=== PATIENT | male | born 1950 | race Caucasian/White ===

== ENCOUNTER 2024-05-19 02:42 | Inpatient (IN) | payer MEDICARE, SELFPAY ==
[2024-05-19] VITALS (16 sets, daily range): BP systolic 128–250; BP diastolic 47–118; PULSE 75–89; RESP 10–21; TEMP 36.3–37.6; O2SAT 94–100
--- NOTE | 2024-05-19 03:30 | ED.MALEGU ---
HPI - Male Genitourinary General Chief complaint: Urogenital-Male Stated complaint: urinary sx, hematuria Time Seen by Provider: 05/19/24 03:08 History of Present Illness HPI Narrative: This is a 74-year-old male with a past medical history significant for prostate surgeries including TURP who presents to the emergency department today for urinary retention and previous passage of big blood clots. Patient states that for last several days he has been having some dime-sized blood clot passage associated some mild abdominal discomfort. This has happened to him previously requiring catheterization. This was attributed to prostatic issues and he previously had urologist up in [place] and underwent several procedures. He states that almost 24 hours now he has not been able to urinate and feels like there is no obstruction. He is having abdominal discomfort and distention. No associated nausea, vomiting, fever, chills, back pain, chest pain, shortness a breath. Was otherwise in his normal state of health. Did not take his blood pressure medications this morning. Related Data Home Medications Medication Instructions Recorded Confirmed aspirin 81 mg tablet,delayed 81 mg PO DAILY 05/19/24 05/19/24 release carvedilol 12.5 mg tablet 12.5 mg PO TID 05/19/24 05/19/24 dapagliflozin propanediol 10 mg 10 mg PO DAILY 05/19/24 05/19/24 tablet (Farxiga) furosemide 20 mg tablet 20 mg PO DAILY 05/19/24 05/19/24 hydralazine 25 mg tablet 25 mg PO TID 05/19/24 05/19/24 potassium chloride 10 mEq 10 meq PO DAILY 05/19/24 05/19/24 tablet,extended release sacubitril 49 mg-valsartan 51 mg 49 tablet PO BID 05/19/24 05/19/24 tablet (Entresto) Allergies Allergy/AdvReac Type Severity Reaction Status Date / Time lisinopril Allergy Cough Verified 05/19/24 02:43 Review of Systems Review of Systems: As reviewed above in HPI FOR[facility]LY [facility], [facility] Past Medical History Medical History Cardiomyopathy HTN (hypertension) with goal to be determined Hyperlipidemia Mitral regurgitation Stopped smoking with less than 1 pack per day history Exam Narrative: GENERAL: [Well-appearing, well-nourished, and in no acute distress.] HEAD: [Normocephalic, atraumatic.] EYES: [PERRLA and EOMI.] ENT: Nares clear, no rhinorrhea or epistaxis. Mucous membranes moist. NECK: Supple. CHEST: [Clear to auscultation. No respiratory distress.] HEART: [Regular rate and rhythm]. No murmur heard. [Normal peripheral pulses.] ABDOMEN: Distended abdomen, soft, tenderness in the suprapubic region, [No rigidity or guarding] no CVA tenderness EXTREMITIES: Normal range of motion. [No edema.] SKIN: Warm, dry, no rash. NEURO: [No focal deficits]. Alert and oriented [x3.] PSYCH: [Normal mood and affect.] Course Vital Signs Vital signs: Vital Signs Temperature 36.7 C 05/19/24 02:44 Pulse Rate 89 05/19/24 02:44 Respiratory Rate 17 05/19/24 02:44 Blood Pressure 250/118 H 05/19/24 02:44 Pulse Oximetry 98 05/19/24 02:44 Oxygen Delivery Room Air 05/19/24 02:44 Temperature 36.7 C 05/19/24 02:44 Pulse Rate 83 05/19/24 05:37 Respiratory Rate 14 05/19/24 05:37 Blood Pressure 227/114 H 05/19/24 05:37 Pulse Oximetry 96 05/19/24 05:37 Oxygen Delivery Room Air 05/19/24 02:44 MDM - Male Genitourinary MDM Narrative Medical decision making narrative: 74-year-old male presenting for urinary obstruction and retention. He also had 2 days of hematuria. Previous prostate issues and history of a TURP for similar presentation years ago. He is nontoxic appearing, not in any acute distress but is painful with a distended abdomen and tender suprapubic region. No CVA tenderness. Vital signs show hypertension a blood pressure of 237/119. Patient has a history of chronic hypertension. Did not take his blood pressure medications this evening. Asymptomatic from this at this time does not require emergent lowering of his blood pressure, there i
[2024-05-19] MEDS: MORPHINE SULFATE (*CRX) 4 MG/ML INJ IV PUSH (03:40)
[2024-05-19] MEDS: HYDROmorphone HCL INJ (*CRX) 1 MG/ML SYR 0.5 MG IV PUSH (04:09)
[2024-05-19] MEDS: ONDANSETRON INJ 4 MG/2 ML VIAL IV PUSH ×2 (04:10→10:57)
[2024-05-19] MEDS: LACTATED RINGERS 1,000 ML 999 ML IV CONT (04:10)
[2024-05-19 04:42] LABS: Basophils Percent Auto 0.3 % (0.2-1.2); Eosinophils Absolute Auto 0.1 K/mm3 (0-0.3); Eosinophils Percent Auto 0.5 % (0-4.4); Hematocrit 45.6 % (42.0-52.0); Hemoglobin 15.4 g/dL (14.0-18.0); Immature Granulocyte Absolute 0.05 K/mm3 (0.00-0.031); Immature Granulocyte Percent A 0.3 % (0-0.5); Lymphocytes Absolute Auto 1.03 K/mm3 (0.9-3.2); Lymphocytes Percent Auto 6.7 % (18.3-44.2); Mean Corpuscular HGB Conc 33.8 g/dl (32-36); Mean Corpuscular Hemoglobin 30.4 pg (26-34); Mean Corpuscular Volume 89.9 fl (80-100); Mean Platelet Volume 11.1 fl (7.4-10.4); Monocytes Absolute Auto 0.8 K/mm3 (0.1-0.6); Monocytes Percent Auto 5.1 % (2.6-8.5); Neutrophils Absolute Auto 13.3 K/mm3 (1.3-6.7); Neutrophils Percent Auto 87.1 % (45.5-73.1); Platelet Count Result 164 k/mm3 (150-375); Red Blood Count 5.07 M/mm3 (4.6-6.20); Red Cell Distribution Width 13.3 % (11.5-14.5); White Blood Count 15.3 K/mm3 (4.5-10.0)
[2024-05-19 04:55] LABS: Prothrombin Time 14.2 Seconds (11.1-14.7)
[2024-05-19 04:56] LABS: Partial Thromboplastin Time 29.2 Seconds (22.3-36.8)
[2024-05-19 04:57] LABS: Anion Gap 14 mmol/L (4-12); Blood Urea Nitrogen 23 mg/dL (9-20); Calcium 8.6 mg/dL (8.4-10.2); Carbon Dioxide 27 mmol/L (22-30); Chloride 101 mmol/L (98-107); Estimated CRCL calculation 64 ml/min; Estimated Glomerular Filt Rate > 60; Glucose 149 mg/dL (65-110); Potassium 2.8 mmol/L (3.4-5.0); Sodium 142 mmol/L (137-145)
--- NOTE | 2024-05-19 05:02 | P.PNAN_ITS ---
Anes - Eval Pre Procedure Procedure: Cysto with clot evac Date/Time: 05/19/24 05:02 Surgeon: Blaine Pre Op Diagnosis: urinary sx, hematuria Patient Data Age: 74 Gender: M Height: 1.83 m Weight: 84.9 kg Last Vital Signs Temp 98.1 F 05/19/24 02:44 Pulse 89 05/19/24 02:44 Resp 17 05/19/24 02:44 BP 250/118 H 05/19/24 02:44 Pulse Ox 98 05/19/24 02:44 O2 Del Method Room Air 05/19/24 02:44 Allergies Allergy/AdvReac Type Severity Reaction Status Date / Time lisinopril Allergy Cough Verified 05/19/24 02:43 Laboratory Tests 05/19/24 04:33 WBC 15.3 H K/mm3 (4.5-10.0) RBC 5.07 M/mm3 (4.6-6.20) Hgb 15.4 g/dL (14.0-18.0) Hct 45.6 % (42.0-52.0) MCV 89.9 fl (80-100) MCH 30.4 pg (26-34) MCHC 33.8 g/dl (32-36) RDW 13.3 % (11.5-14.5) Plt Count 164 k/mm3 (150-375) MPV 11.1 H fl (7.4-10.4) Immature Gran % (Auto) 0.3 % (0-0.5) Neut % (Auto) 87.1 H % (45.5-73.1) Lymph % (Auto) 6.7 L % (18.3-44.2) [place] % (Auto) 5.1 % (2.6-8.5) Eos % (Auto) 0.5 % (0-4.4) Baso % (Auto) 0.3 % (0.2-1.2) Lymph # (Auto) 1.03 K/mm3 (0.9-3.2) [place] # (Auto) 0.8 H K/mm3 (0.1-0.6) Eos # (Auto) 0.1 K/mm3 (0-0.3) Baso # (Auto) 0.0 K/mm3 (0.0-0.1) Abs Immat Gran (auto) 0.05 H K/mm3 (0.00-0.031) Absolute Neuts (auto) 13.3 H K/mm3 (1.3-6.7) Absolute Nucleated RBC 0.000 K/mm3 (0.0-0.012) Nucleated RBC % 0.0 % (0.0-0.2) PT 14.2 Seconds (11.1-14.7) INR 1.0 APTT 29.2 Seconds (22.3-36.8) Sodium 142 mmol/L (137-145) Potassium 2.8 L* mmol/L (3.4-5.0) Chloride 101 mmol/L (98-107) Carbon Dioxide 27 mmol/L (22-30) Anion Gap 14 H mmol/L (4-12) BUN 23 H mg/dL (9-20) Creatinine 1.00 mg/dL (0.7-1.3) Estim Creat Clear Calc 64 ml/min Estimated GFR > 60 (59 - ) Glucose 149 H mg/dL (65-110) Calcium 8.6 mg/dL (8.4-10.2) Blood Type Pending Antibody Screen Pending Patient hx anesthesia problems: none Family hx anesthesia problems: none Results Review: All pre-operative results and documents have been reviewed as part of the pre- operative evaluation. [facility] Past Medical History Medical History Cardiomyopathy HTN (hypertension) with goal to be determined Hyperlipidemia Mitral regurgitation Stopped smoking with less than 1 pack per day history Exam Day of Procedure 05/19/24 05:02 Patient weight: normal
[2024-05-19] MEDS: carvediloL 6.25 MG TABLET PO (05:06)
[2024-05-19] MEDS: hydrALAZINE HCL 25 MG TABLET PO ×3 (05:06→15:55)
[2024-05-19] MEDS: POTASSIUM CHLORIDE INJ 40 MEQ in SODIUM CHLORIDE 0.9% IV 500 ML 130 MEQ IVPB (05:32)
--- NOTE | 2024-05-19 05:38 | P.HP_ITS ---
H&P: HPI History of Present Illness Date/Time: 05/19/24 05:38 Chief Complaint: Urinary retention with hematuria and clots Narrative: 74-year-old male with history of Rezume and TURP 5 years ago who presented to [facility] emergency room after inability to void since 11:00 a.m. yesterday afternoon. Patient stated that he had clots in addition. Multiple attempts at catheter placement were made by the emergency room unsuccessfully. Patient states that he had nocturia 2-5 times and frequency every hour to 2 hours prior to this event. Patient denies any fevers. Review of Systems Review of Systems: All systems reviewed & are unremarkable except as noted in HPI and below PMFSH Past Medical History Medical History Cardiomyopathy HTN (hypertension) with goal to be determined Hyperlipidemia Mitral regurgitation Stopped smoking with less than 1 pack per day history Meds Home Medications and Allergies Allergies Allergy/AdvReac Type Severity Reaction Status Date / Time lisinopril Allergy Cough Verified 05/19/24 02:43 Vital Signs Vital Signs - 24 hr 05/19/24 02:44 05/19/24 05:06 05/19/24 05:37 Temperature 36.7 C Pulse Rate 89 84 83 Respiratory Rate 17 14 Blood Pressure 250/118 H 227/114 H Pulse Oximetry 98 96 Oxygen Delivery Room Air Exam Const: General: cooperative and uncomfortable Resp: Effort & Inspection: normal respiratory effort Cardio: Rate: regular rate Rhythm: regular rhythm GI: Inspection: distended H&P: Results Labs Labs: Short CBC 05/19/24 Range/Units 04:33 WBC 15.3 H (4.5-10.0) K/mm3 Hgb 15.4 (14.0-18.0) g/dL Hct 45.6 (42.0-52.0) % Plt Count 164 (150-375) k/mm3 [facility] 05/19/24 04:33 Sodium 142 Potassium 2.8 L* Chloride 101 Carbon Dioxide 27 BUN 23 H Creatinine 1.00 Glucose 149 H Calcium 8.6 Assessment and Plan Assessment and plan (1) Urinary retention: Code(s): R33.9 - Retention of urine, unspecified Status: Acute Assessment and Plan: Will need to go to the operating room for cystoscopy with White catheter placement possible clot evacuation (2) Hematuria: Code(s): R31.9 - Hematuria, unspecified Status: Acute Assessment and Plan: See above (3) Blood clots in urine: Code(s): R31.0 - Gross hematuria Status: Acute Assessment and Plan: See above (4) Hypertension: Code(s): I10 - Essential (primary) hypertension Status: Acute Assessment and Plan: Possibly related to his pain. Will have medical management given his history of significant hypertension and cardiomyopathy
--- NOTE | 2024-05-19 05:55 | WPDHPUPDATE1 ---
History and Physical Update Update Date/Time: 05/19/24 05:55 History and Physical has been reviewed, including an updated exam of the patient. There are NO changes in the patient's condition. Risks, benefits, and alternatives have been discussed and questions answered. Patient agrees to proceed with procedure.
[2024-05-19] MEDS: ceFAZolin SODIUM 1 GM VIAL 2 GM IV PUSH (06:06)
[2024-05-19] MEDS: LIDOCAINE HCL 2% GEL UROJET 10 ML PKG MUCOUS MEM (06:08)
--- NOTE | 2024-05-19 06:28 | W.PM.PROC2 ---
Procedure Note - Detailed Date of Procedure 05/19/24 Pre-op Diagnosis urinary sx, hematuria Post-op Diagnosis Same Procedure Performed Cystoscopy, clot evacuation, fulguration, complex White catheter placement 22 [place] Surgeon Abram Valladares MD Anesthesia General Description of Procedure Patient was taken to the operative suite correctly identified. Once anesthesia was obtained was placed in dorsal lithotomy position prepped draped usual sterile fashion. Twenty-two Georgian scope was inserted in direct vision there were no urethral strictures. Visualization was somewhat difficult due to the prior attempts at White catheter placement. Nonetheless were able to place the cystoscope into the bladder. Approximately 75 cc of clot were retrieved. The bladder itself was then inspected. There were no tumors noted. There was moderate trabeculation. There was some distortion of the trigonal area both ureteral orifices were visualized. It was noted that there was oozing and bleeding from the bladder neck area. There was also very vascular residual prostatic tissue which was oozing. Using a rollerball we fulgurated these areas. Due to his prior resume and TURP again the normal anatomy is distorted. There is some residual tissue present. At termination of this procedure there was good hemostasis. I could not place a [address] without the use of a catheter guide. 2% viscous lidocaine had been placed into the urethra. He is taken recovery stable condition. He will be admitted for CBI and medical management of his hypertension. This completes dictation. Please send a copy of op note to my office. Estimated Blood Loss 10 Drains Yes Packing No Pathology None sent Complications No immediate complications Condition Stable Disposition PACU
[2024-05-19] MEDS: LACTATED RINGERS 1,000 ML 30 ML IV CONT (06:34)
--- NOTE | 2024-05-19 09:23 | ADMGEN ---
This patient, Inocencio Still, was admitted to [facility] Surg Room 306-02. Patient/family oriented to hospital policies and general routines including ID bracelet, bed and alarms, visiting hours, pain management, procedures, bathroom and other care routines, personal items, smoking policy, room service/diet, and visiting hours. Information on how to activate the Rapid Response Team has been discussed. Patient/Family are encouraged to report perceived risks to care and to ask questions if they do not understand what they are told or what they should do.
[2024-05-19] MEDS: EMPAGLIFLOZIN 10 MG TABLET BY MOUTH (09:35)
[2024-05-19] MEDS: SACUBITRIL/VALSARTAN 49-51 MG TABLET 1 TABLET PO ×2 (09:35→20:22)
[2024-05-19] MEDS: POTASSIUM CHLORIDE 10 MEQ ER TABLET PO (09:35)
[2024-05-19] MEDS: FUROSEMIDE 20 MG TABLET PO (09:35)
[2024-05-19] MEDS: DOCUSATE SODIUM 100 MG CAPSULE PO (09:35)
[2024-05-19] MEDS: DEXTROSE 5%/LACTATED RINGERS 1,000 ML 125 ML IV CONT ×2 (09:36→16:58)
[2024-05-19] MEDS: HYDROcodone/acetaminophen (*CRX) 5-325 MG TABLET 1 TAB PO ×3 (10:57→20:22)
[2024-05-19] MEDS: HYOSCYAMINE SULFATE 0.125 MG TABLET SUBLINGUAL ×2 (10:57→16:58)
--- NOTE | 2024-05-19 12:45 | WPDCN ---
Assessment and Plan Assessment and plan (1) Urinary retention: Code(s): R33.9 - Retention of urine, unspecified Status: Acute (2) Hematuria: Code(s): R31.9 - Hematuria, unspecified Status: Acute (3) Hypokalemia: Code(s): E87.6 - Hypokalemia Status: Acute (4) Benign prostatic hyperplasia: Code(s): N40.0 - Benign prostatic hyperplasia without lower urinary tract symptoms Status: Acute (5) Hypertension: Code(s): I10 - Essential (primary) hypertension Status: Acute (6) Heart failure with reduced ejection fraction: Code(s): I50.20 - Unspecified systolic (congestive) heart failure Status: Acute (7) Hypertension: Code(s): I10 - Essential (primary) hypertension Status: Acute Plan The patient presented to the emergency department for evaluation hematuria and urinary retention as detailed in HPI. Labs, imaging, EKG, and all reports were personally reviewed. He is now status post cystoscopy with clot evaluation, fulguration, and complex White catheter placement per Dr. Valladares this morning. He has been started on cephalexin. Follow-up urine culture. Potassium was 2.8 and he was given 40 mEq KCL in the ED. Repeat BMP ordered this afternoon. Volume status is euvolemic; avoid over-hydration. Blood pressures were initially running quite high, likely due to pain from urinary retention, but they have improved postop and will be monitored closely. CPAP will be provided for the patient to use while hospitalized. His home medications will be reviewed and resumed as appropriate. Findings and treatment plan were discussed with the patient. Questions were solicited and answered to satisfaction. The patient's medical management will be taken over by the hospitalist team in a.m. Thank you for allowing us to participate in this patient's care. Please do not hesitate to contact us with any questions. HPI Data of Consult Date/Time: 05/19/24 13:00 Requesting Physician: Abram Valladares MD Primary Care Provider: Amelie Paez MD Consult Narrative Reason for consult: Medical management. Narrative: This is a 74-year-old male with benign prostatic hyperplasia, heart failure with reduced ejection fraction (EF as low as 25% with improvement to 55%), obstructive sleep apnea, hypertension, and hyperlipidemia who presented to the emergency department with complaints of difficulties urinating and passing blood clots. The patient provides the following history. He had not been able to void since 11:00 yesterday and sometime last evening he started passing dime-sized blood clots but now urine. His abdomen became increasingly painful and distended and he presented to the emergency department in the rn referral hours. Multiple attempts at urinary catheter placement in the ED were unsuccessful. He was taken to the OR this morning for Dr. Valladares for cystoscopy with clot evacuation, fulguration, and complex White catheter placement. He has been admitted to the floor on CBI and the hospitalist service is consulted for help managing his medical conditions. He was having quite a bit of bladder spasms postoperatively however those have improved significantly with the addition of hyoscyamine. Catheter is draining well and he has no current complaints. He denies fever, chills, sweats, nausea, and vomiting. Review of Systems Review of Systems: 12 systems were reviewed and are negative except for as per HPI. [facility] Past Medical History Medical History Benign prostatic hyperplasia Cardiomyopathy Heart failure with reduced ejection fraction EF 25% in 11/2023 improved to 55% in 01/2024. Hyperlipidemia Hypertension Mitral regurgitation Obstructive sleep apnea on CPAP Stopped smoking with less than 1 pack per day history Surgical History Surgical History History of transurethral resection of prostate Family Histo
[2024-05-19] MEDS: ceFAZolin 1 GM/NS 50 ML 1 GM/50 ML BAG IVPB ×2 (13:20→21:21)
[2024-05-19] MEDS: carvediloL 12.5 MG TABLET PO (15:54)
[2024-05-19 16:19] LABS: Bacteria Urine None Seen /hpf; Non Pathogenic Casts 0-2; RBC Urine >100 /hpf (0-2); Squamous Epithelial Cell Urine None Seen /hpf (Few); WBC Urine 0-5 /hpf (0-3)
[2024-05-19 16:20] LABS: Add Urine Microscopic? YES; Appearance Urine Clear (Clear); Bilirubin Urine Negative (Negative); Blood Urine 3+ (Negative); Glucose Urine UA 1+ mg/dL (Negative); Ketones Urine Negative (Negative); Leukocyte Esterase Ur Trace LEU/UL (Negative); Nitrate Urine Negative (Negative); Protein Urine Negative (Negative); Specific Grav Ur 1.006 (1.001-1.035); Urobilinogen Urine 0.2 mg/dL (<2.0)
[2024-05-19 16:21] LABS: Color Urine Light Red (Yellow)
[2024-05-19 20:23] LABS: Hematocrit 41.1 % (42.0-52.0); Hemoglobin 13.7 g/dL (14.0-18.0)
[2024-05-19 20:34] LABS: Magnesium 2.4 mg/dL (1.6-2.3); Potassium 3.2 mmol/L (3.4-5.0)
[2024-05-19 20:35] LABS: Anion Gap 7 mmol/L (4-12); Blood Urea Nitrogen 20 mg/dL (9-20); Calcium 8.2 mg/dL (8.4-10.2); Carbon Dioxide 34 mmol/L (22-30); Chloride 99 mmol/L (98-107); Estimated CRCL calculation 54 ml/min; Estimated Glomerular Filt Rate 59; Glucose 123 mg/dL (65-110); Potassium 3.2 mmol/L (3.4-5.0); Sodium 140 mmol/L (137-145)
[2024-05-19] MEDS: POTASSIUM CHLORIDE 20 MEQ ER TABLET PO (23:18)
[2024-05-20] VITALS (8 sets, daily range): BP systolic 144–168; BP diastolic 59–79; PULSE 77–94; RESP 16–18; TEMP 36.6–37.6; O2SAT 95–99
[2024-05-20 06:35] LABS: Hematocrit 38.5 % (42.0-52.0); Hemoglobin 12.3 g/dL (14.0-18.0)
[2024-05-20 06:47] LABS: Anion Gap 7 mmol/L (4-12); Blood Urea Nitrogen 18 mg/dL (9-20); Calcium 7.7 mg/dL (8.4-10.2); Carbon Dioxide 30 mmol/L (22-30); Chloride 104 mmol/L (98-107); Estimated CRCL calculation 64 ml/min; Estimated Glomerular Filt Rate > 60; Glucose 96 mg/dL (65-110); Potassium 2.9 mmol/L (3.4-5.0); Sodium 141 mmol/L (137-145)
[2024-05-20] MEDS: carvediloL 12.5 MG TABLET PO ×3 (09:13→16:30)
[2024-05-20] MEDS: HYOSCYAMINE SULFATE 0.125 MG TABLET SUBLINGUAL ×2 (09:13→16:07)
[2024-05-20] MEDS: hydrALAZINE HCL 25 MG TABLET PO ×3 (09:13→16:30)
[2024-05-20] MEDS: SACUBITRIL/VALSARTAN 49-51 MG TABLET 1 TABLET PO ×2 (09:14→20:29)
[2024-05-20] MEDS: DOCUSATE SODIUM 100 MG CAPSULE PO ×2 (09:14→16:07)
[2024-05-20] MEDS: POTASSIUM CHLORIDE 10 MEQ ER TABLET PO (09:14)
[2024-05-20] MEDS: FUROSEMIDE 20 MG TABLET PO (09:14)
[2024-05-20] MEDS: EMPAGLIFLOZIN 10 MG TABLET BY MOUTH (09:15)
[2024-05-20] MEDS: CEPHALEXIN 500 MG CAPSULE PO ×4 (09:15→20:29)
[2024-05-20] MEDS: HYDROcodone/acetaminophen (*CRX) 5-325 MG TABLET 1 TAB PO ×2 (09:31→16:07)
--- NOTE | 2024-05-20 09:50 | WPDUROPN2 ---
Progress Note: A&P Assessment and Plan (1) Urinary retention: Code(s): R33.9 - Retention of urine, unspecified Status: Acute Assessment and Plan: S/p cystoscopy with clot evacuation on 05/19/[address] Valladares (2) Hematuria: Code(s): R31.9 - Hematuria, unspecified Status: Acute Assessment and Plan: With clot retention. Continue CBI, titrate to keep urine clear and continue to wean. Monitor H&H, remaining stable at this time Subjective Subjective Date/Time Seen: 05/20/24 09:50 Interval history: Inocencio is doing well today. Endorses some mild White catheter irritation reports overall for more comfortable today. Notes blood in his urine upon sitting or standing better at rest urine is clear. At this time catheter is draining clear urine on moderate drip CBI. He denies nausea, vomiting, fever, or chills. Review of Systems Review of Systems: All systems reviewed & are unremarkable except as noted in HPI and below Exam Narrative: General: Awake, alert, comfortable, no acute distress HEENT: Normocephalic, atraumatic, sclerae anicteric Respiratory: Normal respiratory effort, no accessory muscle use Abdomen: Nondistended, soft, nontender : Three-way catheter draining clear urine on moderate drip CBI Skin: Normal coloration, warm and dry Neurologic: No focal neuro deficits noted Psychiatric: Appropriate mood and affect, judgment and insight intact Objective Data Vital Signs Vital Signs: Vital Signs - 24 hr 05/19/24 10:08 05/19/24 13:02 05/19/24 17:42 Temperature 98.0 F 99.3 F 99.0 F Pulse Rate 87 81 75 Respiratory Rate 18 18 18 Blood Pressure 160/74 H 135/56 L 128/53 L Pulse Oximetry 95 96 94 Oxygen Delivery 05/19/24 21:33 05/20/24 01:42 05/20/24 05:42 Temperature 99.6 F 99.6 F 99.5 F Pulse Rate 86 84 91 Respiratory Rate 18 16 16 Blood Pressure 132/47 L 153/69 H 168/79 H Pulse Oximetry 96 95 95 Oxygen Delivery 05/19/24 22:40 05/20/24 09:13 05/20/24 09:40 Temperature 98.5 F Pulse Rate 94 82 Respiratory Rate 16 Blood Pressure 165/71 H Pulse Oximetry 96 Oxygen Delivery CPAP Intake/Output Intake/Output: Intake & Output 05/17/24 05/18/24 05/19/24 05/20/24 23:59 23:59 23:59 23:59 Intake Total 2137.5 1318 Output Total 6350 1100 Balance -4212.5 218 Meds/Results Medications: Active Medications Generic Name Dose Route Start Last Admin Trade Name Freq PRN Reason Stop Dose Admin Hydrocodone Bitart/Acetaminophen 1 tab 05/19/24 07:57 05/20/24 09:31 Hydrocodone/Acetaminophen (*Crx) 5-325 Mg Tablet PO 1 tab Q4H PRN Administration Pain Rated 1-6 Carvedilol 12.5 mg 05/19/24 17:00 05/20/24 09:13 Carvedilol 12.5 Mg Tablet PO 12.5 mg TID MENDY Administration Cephalexin HCl 500 mg 05/20/24 09:00 05/20/24 09:15 Cephalexin 500 Mg Capsule PO 500 mg QID MENDY Administration Docusate Sodium 100 mg 05/19/24 09:00 05/20/24 09:14 Docusate Sodium 100 Mg Capsule PO 100 mg BID MENDY Administration Empagliflozin 10 mg 05/19/24 09:00 05/20/24 09:15 Empagliflozin 10 Mg Tablet BY MOUTH 06/18/24 08:59 10 mg DAILY MENDY Administration Furosemide 20 mg 05/19/24 09:00 05/20/24 09:14 Furosemide 20 Mg Tablet PO 20 mg QAM MENDY Administration Hydralazine HCl 25 mg 05/19/24 13:00 05/20/24 09:13 Hydralazine Hcl 25 Mg Tablet PO 25 mg TID MENDY Administration Hyoscyamine 0.125 mg 05/19/24 07:57 05/20/24 09:13 Hyoscyamine Sulfate 0.125 Mg Tablet SUBLINGUAL 0.125 mg Q6H PRN Administration Bladder Spasm Morphine Sulfate 2 mg 05/19/24 07:57 Morphine Sulfate (*Crx) 2 Mg/Ml Inj IV PUSH Q2H PRN Pain Rated 7-10 Naloxone HCl 0.1 mg 05/19/24 07:57 Naloxone Hcl 0.4 Mg/Ml Vial IV PUSH Q2M PRN Opiate Reversal Ondansetron HCl 4 mg 05/19/24 07:57 05/19/24 10:57 Ondansetron Inj 4 Mg/2 Ml Vial IV PUSH 4 mg Q12H PRN A
[2024-05-20] MEDS: POTASSIUM CHLORIDE 20 MEQ PACKET (FOR LIQUID) 40 MEQ PO (10:10)
--- NOTE | 2024-05-20 13:24 | WPDANESPN ---
Anes - Prog Note Post-Op Date/Time: 05/20/24 13:24 Cardiovascular status: normal Respiratory status: normal Airway patency: baseline Mental status: baseline Post-Op hydration status: normal Vital Signs: Last Vital Signs Temp 36.9 C 05/20/24 09:40 Pulse 82 05/20/24 09:40 Resp 16 05/20/24 09:40 BP 165/71 H 05/20/24 09:40 Pulse Ox 96 05/20/24 09:40 O2 Del Method CPAP 05/19/24 22:40 O2 Flow Rate 8 05/19/24 06:34 Pain Score (VAS): 10/19 I/O: Intake & Output 05/19/24 05/20/24 05/20/24 23:59 07:59 15:59 Intake Total 1450.8 1200 840 Output Total 1350 1100 Balance 100.8 100 840 Laboratory Tests 05/20/24 05:35 05/20/24 05:35 05/19/24 05/19/24 05/19/24 16:04 20:17 20:17 Hgb 13.7 L Hct 41.1 L Sodium 140 Potassium 3.2 L 3.2 L Chloride 99 Carbon Dioxide 34 H Anion Gap 7 BUN 20 Creatinine 1.20 Estim Creat Clear Calc 54 Estimated GFR 59 Glucose 123 H Calcium 8.2 L Magnesium 2.4 H Urine Color Light red H Urine Appearance Clear Urine pH 5.0 Ur Specific [place] 1.006 Urine Protein Negative Urine Glucose (UA) 1+ H Urine Ketones Negative Ur Blood (Man) 3+ H Urine Nitrate Negative Urine Bilirubin Negative Urine Urobilinogen 0.2 Leukocyte Esterase Rfl Trace H Urine RBC >100 H Urine WBC 0-5 Ur Squamous Epith Cells None seen Urine Bacteria None seen Urine Casts 0-2 05/20/24 05:35 Hgb 12.3 L Hct 38.5 L Sodium 141 Potassium 2.9 L Chloride 104 Carbon Dioxide 30 Anion Gap 7 BUN 18 Creatinine 1.00 Estim Creat Clear Calc 64 Estimated GFR > 60 Glucose 96 Calcium 7.7 L Magnesium Urine Color Urine Appearance Urine pH Ur Specific [place] Urine Protein Urine Glucose (UA) Urine Ketones Ur Blood (Man) Urine Nitrate Urine Bilirubin Urine Urobilinogen Leukocyte Esterase Rfl Urine RBC Urine WBC Ur Squamous Epith Cells Urine Bacteria Urine Casts Post-procedural complaints: none Patient Feedback: Patient satisfied with anesthetic care.
--- NOTE | 2024-05-20 13:41 | PM.IMPN ---
Progress Note: A&P Assessment and Plan (1) Urinary retention: Code(s): R33.9 - Retention of urine, unspecified Status: Acute Assessment and Plan: The patient presented to the emergency department for evaluation hematuria and urinary retention status post cystoscopy with clot evaluation, fulguration, and complex White catheter placement on 05/19. UA noted but no UCx collected. He has been started on cephalexin. Retention related to clot Hgb 15 and has trended down to 12.3 Follow (2) Hematuria: Code(s): R31.9 - Hematuria, unspecified Status: Acute Assessment and Plan: As above. Urine is clearing (3) Hypokalemia: Code(s): E87.6 - Hypokalemia Status: Acute Assessment and Plan: Potassium was 2.8 on admission and he was given 40 mEq KCL IV in the ED. Repeat potassium better but dropped to 2.9 this morning. Oral potassium given Repeat potassium level and continue to replace as needed. (4) Benign prostatic hyperplasia: Code(s): N40.0 - Benign prostatic hyperplasia without lower urinary tract symptoms Status: Acute Assessment and Plan: BPH s/p TURP. Urine retention more likely related to the hematuria/clot. (5) Hypertension: Code(s): I10 - Essential (primary) hypertension Status: Acute Assessment and Plan: Patient's blood pressure was reviewed on 05/20 Blood pressure remains well controlled. Will continue current medications. (6) Heart failure with reduced ejection fraction: Code(s): I50.20 - Unspecified systolic (congestive) heart failure Status: Acute Assessment and Plan: Patient with heart failure with reduced ejection fraction (EF as low as 25% with improvement to 55%). Volume status is euvolemic; avoid over-hydration. Plan TONY - CPAP will be provided for the patient to use while hospitalized. DVT Prophylaxis - SCDs Code status - Full Subjective Date/time seen: 05/20/24 13:41 Interval history: 74yo male with BPH, CHF and HTN here for urine retention and hematuria. Assuming care. Chart reveiwed. Patietn feels well. no Cp or SOb. No n/v/d. Off BPH meds for 5 years after TURP Exam Narrative: AF 99.1 144/59 80 16 98% Gen - NARD Chest - CTA bilaterally, nml RR CV - RRR S1/S2 Abd - Soft, NT/ND, Positive BS - White secured draining pink colored urine Ext - No pedal edema Psych - Nml mood and affect Skin - Warm and dry Objective Data Vital Signs Vital Signs: Vital Signs - 24 hr 05/19/24 17:42 05/19/24 21:33 05/20/24 01:42 Temperature 99.0 F 99.6 F 99.6 F Pulse Rate 75 86 84 Respiratory Rate 18 18 16 Blood Pressure 128/53 L 132/47 L 153/69 H Pulse Oximetry 94 96 95 Oxygen Delivery 05/20/24 05:42 05/19/24 22:40 05/20/24 09:13 Temperature 99.5 F Pulse Rate 91 94 Respiratory Rate 16 Blood Pressure 168/79 H Pulse Oximetry 95 Oxygen Delivery CPAP 05/20/24 09:40 05/20/24 13:27 05/20/24 13:40 Temperature 98.5 F 99.1 F Pulse Rate 82 84 80 Respiratory Rate 16 16 Blood Pressure 165/71 H 144/59 H Pulse Oximetry 96 98 Oxygen Delivery Intake/Output Intake/Output: Intake & Output 05/17/24 05/18/24 05/19/24 05/20/24 23:59 23:59 23:59 23:59 Intake Total 2137.5 2040 Output Total 6350 1100 Balance -4212.5 940 Meds/Results Medications: Active Medications Generic Name Dose Route Start Last Admin Trade Name Freq PRN Reason Stop Dose Admin Hydrocodone Bitart/Acetaminophen 1 tab 05/19/24 07:57 05/20/24 09:31 Hydrocodone/Acetaminophen (*Crx) 5-325 Mg Tablet PO 1 tab Q4H PRN Administration Pain Rated 1-6 Carvedilol 12.5 mg 05/19/24 17:00 05/20/24 13:27 Carvedilol 12.5 Mg Tablet PO 12.5 mg TID MENDY Administration Cephalexin HCl 500 mg 05/20/24 09:00 05/20/24 13:27 Cephalexin 500 Mg Capsule PO 500 mg QID MENDY Administration Docusate Sodium 100 mg 05/19/24 0
[2024-05-20 14:40] LABS: Potassium 3.3 mmol/L (3.4-5.0)
[2024-05-20] MEDS: POTASSIUM CHLORIDE 20 MEQ ER TABLET 40 MEQ PO (17:45)
[2024-05-20] MEDS: POTASSIUM CHLORIDE 20 MEQ ER TABLET PO (20:29)
[2024-05-21] MEDS: HYDROcodone/acetaminophen (*CRX) 5-325 MG TABLET 1 TAB PO ×2 (02:19→09:07)
[2024-05-21] MEDS: HYOSCYAMINE SULFATE 0.125 MG TABLET SUBLINGUAL ×2 (02:20→09:09)
[2024-05-21 05:59] VITALS: BP 163/75; PULSE 65; RESP 16; TEMP 36.4; O2SAT 96
[2024-05-21 06:39] LABS: Anion Gap 4 mmol/L (4-12); Blood Urea Nitrogen 15 mg/dL (9-20); Carbon Dioxide 31 mmol/L (22-30); Chloride 105 mmol/L (98-107); Estimated CRCL calculation 70 ml/min; Estimated Glomerular Filt Rate > 60; Glucose 88 mg/dL (65-110); Magnesium 2.2 mg/dL (1.6-2.3); Potassium 3.5 mmol/L (3.4-5.0); Sodium 140 mmol/L (137-145)
--- NOTE | 2024-05-21 08:10 | WPDUROPN2 ---
Progress Note: A&P Assessment and Plan (1) Hematuria: Code(s): R31.9 - Hematuria, unspecified Status: Acute Assessment and Plan: Urine clear on minimal CBI. Will hold CBI at this point. Will have our nurse practitioner re-evaluate him later this morning. If urine remains clear can be discharged home with White catheter in follow-up next week for voiding trial. Subjective Subjective Date/Time Seen: 05/21/24 08:10 Post Op day: 2 Principal diagnosis: Hematuria with clots Interval history: Keagan doing better today. His urine is clear with minimal CBI. Will hold CBI at this point time. Review of Systems Review of Systems: All systems reviewed & are unremarkable except as noted in HPI and below Exam Const: General: cooperative and comfortable Resp: Effort & Inspection: normal respiratory effort Cardio: Rate: regular rate Rhythm: regular rhythm Urinary Catheter: Urinary Catheter: patent and draining and urine clear Objective Data Vital Signs Vital Signs: Vital Signs - 24 hr 05/20/24 09:13 05/20/24 09:40 05/20/24 13:27 Temperature 36.9 C Pulse Rate 94 82 84 Respiratory Rate 16 Blood Pressure 165/71 H Pulse Oximetry 96 Oxygen Delivery 05/20/24 13:40 05/20/24 09:13 05/20/24 16:30 Temperature 37.3 C Pulse Rate 80 83 Respiratory Rate 16 Blood Pressure 144/59 H Pulse Oximetry 98 Oxygen Delivery Room Air 05/20/24 21:17 05/21/24 02:08 05/21/24 05:59 Temperature 36.6 C 36.4 C Pulse Rate 77 65 Respiratory Rate 18 16 Blood Pressure 151/76 H 163/75 H Pulse Oximetry 99 96 Oxygen Delivery CPAP Intake/Output Intake/Output: Intake & Output 05/18/24 05/19/24 05/20/24 05/21/24 23:59 23:59 23:59 23:59 Intake Total 2137.5 2400 200 Output Total 6350 3500 1100 Balance -4212.5 -1100 -900 Meds/Results Medications: Active Medications Generic Name Dose Route Start Last Admin Trade Name Freq PRN Reason Stop Dose Admin Hydrocodone Bitart/Acetaminophen 1 tab 05/19/24 07:57 05/21/24 02:19 Hydrocodone/Acetaminophen (*Crx) 5-325 Mg Tablet PO 1 tab Q4H PRN Administration Pain Rated 1-6 Carvedilol 12.5 mg 05/19/24 17:00 05/20/24 16:30 Carvedilol 12.5 Mg Tablet PO 12.5 mg TID MENDY Administration Cephalexin HCl 500 mg 05/20/24 09:00 05/20/24 20:29 Cephalexin 500 Mg Capsule PO 500 mg QID MENDY Administration Docusate Sodium 100 mg 05/19/24 09:00 05/20/24 16:07 Docusate Sodium 100 Mg Capsule PO 100 mg BID MENDY Administration Empagliflozin 10 mg 05/19/24 09:00 05/20/24 09:15 Empagliflozin 10 Mg Tablet BY MOUTH 06/18/24 08:59 10 mg DAILY MENDY Administration Furosemide 20 mg 05/19/24 09:00 05/20/24 09:14 Furosemide 20 Mg Tablet PO 20 mg QAM MENDY Administration Hydralazine HCl 25 mg 05/19/24 13:00 05/20/24 16:30 Hydralazine Hcl 25 Mg Tablet PO 25 mg TID MENDY Administration Hyoscyamine 0.125 mg 05/19/24 07:57 05/21/24 02:20 Hyoscyamine Sulfate 0.125 Mg Tablet SUBLINGUAL 0.125 mg Q6H PRN Administration Bladder Spasm Morphine Sulfate 2 mg 05/19/24 07:57 Morphine Sulfate (*Crx) 2 Mg/Ml Inj IV PUSH Q2H PRN Pain Rated 7-10 Naloxone HCl 0.1 mg 05/19/24 07:57 Naloxone Hcl 0.4 Mg/Ml Vial IV PUSH Q2M PRN Opiate Reversal Ondansetron HCl 4 mg 05/19/24 07:57 05/19/24 10:57 Ondansetron Inj 4 Mg/2 Ml Vial IV PUSH 4 mg Q12H PRN Administration Nausea And Vomiting Potassium Chloride 10 meq 05/19/24 09:00 05/20/24 09:14 Potassium Chloride 10 Meq Er Tablet PO 10 meq DAILY MENDY Administration Sacubitril/Valsartan 1 tablet 05/19/24 09:00 05/20/24 20:29 Sacubitril/Valsartan 49-51 Mg Tablet PO 1 tablet Q12HR MENDY Administration Labs Labs: Laboratory Results - last 24 hr 05/20/24 05/21/24 14:17 05:55 Sodium 140 Potassium 3.3 L 3.5 Chloride 105 Carbon Dioxide 31 H Anion Gap 4 BUN 15
[2024-05-21 09:11] VITALS: PULSE 79
[2024-05-21] MEDS: SACUBITRIL/VALSARTAN 49-51 MG TABLET 1 TABLET PO (09:11)
[2024-05-21] MEDS: carvediloL 12.5 MG TABLET PO ×2 (09:11→12:47)
[2024-05-21] MEDS: FUROSEMIDE 20 MG TABLET PO (09:14)
[2024-05-21] MEDS: EMPAGLIFLOZIN 10 MG TABLET BY MOUTH (09:14)
[2024-05-21] MEDS: DOCUSATE SODIUM 100 MG CAPSULE PO (09:14)
[2024-05-21] MEDS: POTASSIUM CHLORIDE 10 MEQ ER TABLET PO (09:14)
[2024-05-21] MEDS: CEPHALEXIN 500 MG CAPSULE PO ×2 (09:14→12:46)
[2024-05-21] MEDS: hydrALAZINE HCL 25 MG TABLET PO ×2 (09:15→12:46)
[2024-05-21] MEDS: POTASSIUM CHLORIDE 20 MEQ ER TABLET PO (09:15)
[2024-05-21 12:47] VITALS: PULSE 75
--- NOTE | 2024-05-21 13:00 | PM.DS ---
DS: Admitting Diagnosis Discharge Date 05/21/24 Admitting Diagnosis Gross hematuria DS: Discharge Diagnosis Discharge Diagnosis (1) Hematuria: Code(s): R31.9 - Hematuria, unspecified Status: Acute (2) Urinary retention: Code(s): R33.9 - Retention of urine, unspecified Status: Acute (3) Benign prostatic hyperplasia: Code(s): N40.0 - Benign prostatic hyperplasia without lower urinary tract symptoms Status: Acute DS: Summary Hospital Course Hospital Course: Inocencio Still is a 74 year old male with a history of BPH s/p TURP 5 years prior, heart failure, and hypertension who was admitted for clot retention with gross hematuria. He was taken to the OR for cystoscopy, clot evacuation with fulguration, and complex lundberg catheter placement on 05/19/[address] Valladares. He was started on CBI postoperatively which was slowly weaned. CBI was discontinued on POD#2 and urine remained clear. He will continue with his lundberg catheter on discharge and follow up as an outpatient next week for lundberg removal and void trial. He will continue short course of Keflex and will hold aspirin an additional 3 days. He was instructed on lundberg catheter care and management. He did have issues with elevated blood pressures during admission as well as hypokalemia which was managed by the hospitalist service; recommendations greatly appreciated. His BP normalized as did his potassium levels. He will have outpatient follow up with his PCP as well. The patient was feeling greatly improved and was eager for discharge home. We discussed worrisome signs and symptoms for which to return and he was discharged in stable condition on 05/21/24. Time Spent with Patient Time attestation: Total time spent providing and/or coordinating discharge services: 35 minutes Time spent: Greater than 30 minutes Exam Narrative: General: Awake, alert, comfortable, no acute distress HEENT: Normocephalic, atraumatic, sclerae anicteric Respiratory: Normal respiratory effort, no accessory muscle use Abdomen: Nondistended, soft, nontender : Three-way catheter draining clear urine off CBI Skin: Normal coloration, warm and dry Neurologic: No focal neuro deficits noted Psychiatric: Appropriate mood and affect, judgment and insight intact DS: Data Data Completed and Pending Labs on day of discharge: Labs from last 24 hours 05/21/24 05/20/24 05:55 14:17 Sodium 140 Potassium 3.5 3.3 L Chloride 105 Carbon Dioxide 31 H Anion Gap 4 BUN 15 Creatinine 0.90 Estim Creat Clear Calc 70 Estimated GFR > 60 Glucose 88 Calcium 8.0 L Magnesium 2.2 Discharge Plan Discharge Attending physician on discharge: Abram Valladares Consulting providers: Abram Valladares; Shannan Roman Discharging Clinician: Jazz Zabala Patient Disposition: Home, Self-Care Activity: as tolerated Diet: regular Discharge Instructions: Continue with lundberg catheter. Call the office or go to the ER if your catheter stops draining, if you are passing clots of blood, or if you develop pain or pressure. Hold off on taking aspirin until Saturday05/24/24 Patient Instructions: Antibiotic Form Stand Alone Forms: General Discharge Information Follow-up/Referrals: Amelie Paez MD [Primary Care Provider] - Jazz Zabala, TANK [Physician Research Psychologist] - 05/25/24 9:45 am Discharge Medications: New cephalexin 500 mg Capsule 500 mg PO QID 3 Days Qty: 12 0RF Continued carvedilol 12.5 mg tablet 12.5 mg PO TID Patient Comments: Patient stated he takes it 3 times daily hydralazine 25 mg tablet 25 mg PO TID potassium chloride 10 mEq tablet extended release 10 meq PO DAILY furosemide 20 mg tablet 20 mg PO DAILY dapagliflozin propanediol [Farxiga] 10 mg tablet 10 mg PO DAILY Entresto 49-51 mg tablet 49 tablet PO BID Held aspirin 81 mg tablet,delayed release (D
--- NOTE | 2024-05-21 13:06 | PM.IMPN ---
Progress Note: A&P Assessment and Plan (1) Urinary retention: Code(s): R33.9 - Retention of urine, unspecified Status: Acute Assessment and Plan: The patient presented to the emergency department for evaluation hematuria and urinary retention and is now status post cystoscopy with clot evaluation, fulguration, and complex White catheter placement on 05/19. UA noted but no UCx collected. He was started on cephalexin. CBI started. Retention related to clot Hgb 15 and has trended down to 12.3 Follow (2) Hematuria: Code(s): R31.9 - Hematuria, unspecified Status: Acute Assessment and Plan: As above. Urine is clearing (3) Hypokalemia: Code(s): E87.6 - Hypokalemia Status: Acute Assessment and Plan: Potassium was 2.8 on admission and he was given 40 mEq KCL IV in the ED. Repeat potassium better but dropped to 2.9 yesterday morning. Oral potassium given Repeat potassium level and continue to replace as needed. Okay to discharge when okay with urology (4) Benign prostatic hyperplasia: Code(s): N40.0 - Benign prostatic hyperplasia without lower urinary tract symptoms Status: Acute Assessment and Plan: BPH s/p TURP. Urine retention more likely related to the hematuria/clot. (5) Hypertension: Code(s): I10 - Essential (primary) hypertension Status: Acute Assessment and Plan: Patient's blood pressure was reviewed on 05/21 Blood pressure remains reasonably well controlled with SBP 130-160 range. Will continue current medications. Defer to PCP for fine tuning of BP. (6) Heart failure with reduced ejection fraction: Code(s): I50.20 - Unspecified systolic (congestive) heart failure Status: Acute Assessment and Plan: Patient with heart failure with reduced ejection fraction (EF as low as 25% with improvement to 55%). Volume status is euvolemic; avoid over-hydration. Plan TONY - CPAP will be provided for the patient to use while hospitalized. DVT Prophylaxis - SCDs Code status - Full Subjective Date/time seen: 05/21/24 13:06 Interval history: 74yo male with BPH, CHF and HTN here for urine retention and hematuria. No problems overnight. He feels well and is ready for discharge. Exam Narrative: AF 97.6 163/75 75 16 96% Gen - NARD Chest - CTA bilaterally, nml RR CV - RRR S1/S2 Abd - Soft, NT/ND, Positive BS - White secured draining pink colored urine Ext - No pedal edema Psych - Nml mood and affect Skin - Warm and dry Objective Data Vital Signs Vital Signs: Vital Signs - 24 hr 05/20/24 13:27 05/20/24 13:40 05/20/24 16:30 Temperature 99.1 F Pulse Rate 84 80 83 Respiratory Rate 16 Blood Pressure 144/59 H Pulse Oximetry 98 Oxygen Delivery 05/20/24 21:17 05/21/24 02:08 05/21/24 05:59 Temperature 97.9 F 97.6 F Pulse Rate 77 65 Respiratory Rate 18 16 Blood Pressure 151/76 H 163/75 H Pulse Oximetry 99 96 Oxygen Delivery CPAP 05/21/24 09:11 05/21/24 12:47 Temperature Pulse Rate 79 75 Respiratory Rate Blood Pressure Pulse Oximetry Oxygen Delivery Intake/Output Intake/Output: Intake & Output 05/18/24 05/19/24 05/20/24 05/21/24 23:59 23:59 23:59 23:59 Intake Total 2137.5 2400 440 Output Total 6350 3500 1100 Balance -4212.5 -1100 -660 Meds/Results Medications: Active Medications Generic Name Dose Route Start Last Admin Trade Name Freq PRN Reason Stop Dose Admin Hydrocodone Bitart/Acetaminophen 1 tab 05/19/24 07:57 05/21/24 09:07 Hydrocodone/Acetaminophen (*Crx) 5-325 Mg Tablet PO 1 tab Q4H PRN Administration Pain Rated 1-6 Carvedilol 12.5 mg 05/19/24 17:00 05/21/24 12:47 Carvedilol 12.5 Mg Tablet PO 12.5 mg TID MENDY Administration Cephalexin HCl 500 mg 05/20/24 09:00 05/21/24 12:46 Cephalexin 500 Mg Capsule PO 500 mg QID MENDY Administration Docusate S
== END 2024-05-21 13:45 | disposition home or self-care (01) | DRG 699 ==
LOC: ANHED 06:20 → ANHSURGERY 06:43 → ANH3MEDSUR 07:59
PROVIDERS: Internal Medicine; Physician Assistant; Admitting Provider Urology; Emergency Provider Student in an Organized Health Care Education/Training Program; PCP Family Medicine; Visit Provider Physician Assistant
PROC: 0TCB8ZZ Extirpation of Matter from Bladder, Via Natural or Artificial Opening Endoscopic (ICD-10-PCS; CPT 52001; principal; 2024-05-19 06:00)
DX: N32.89 Other specified disorders of bladder (principal); I42.9 Cardiomyopathy, unspecified; I50.22 Chronic systolic (congestive) heart failure; R33.8 Other retention of urine; R31.0 Gross hematuria; N40.0 Benign prostatic hyperplasia without lower urinary tract symptoms; I11.0 Hypertensive heart disease with heart failure; E78.5 Hyperlipidemia, unspecified; I34.0 Nonrheumatic mitral (valve) insufficiency; E87.6 Hypokalemia; G47.33 Obstructive sleep apnea (adult) (pediatric)
CPT/HCPCS: 36415; 80048; 81001; 83735; 84132; 85014; 85018; 85025; 85610; 85730; 86850; 86900; 86901; 96361; 96374; 96375; 99285; A9270; G0378; J0690; J1170; J2270; J2405; J2704; J3010; J3480; J7040; J7120; J7121

== ENCOUNTER 2024-07-16 11:18 | Emergency (ER) | payer MEDICARE, SELFPAY ==
[2024-07-16 11:30] VITALS: BP 157/69; PULSE 91; RESP 18; TEMP 36.7; O2SAT 97
[2024-07-16 13:22] LABS: Add Urine Microscopic? YES; Appearance Urine Cloudy (Clear); Bacteria Urine None Seen /hpf; Bilirubin Urine Negative (Negative); Blood Urine Negative (Negative); Color Urine Yellow (Yellow); Glucose Urine UA 3+ mg/dL (Negative); Hyaline Casts Urine Present /lpf; Ketones Urine 1+ mg/dL (Negative); Leukocyte Esterase Ur Negative LEU/UL (Negative); Need Manual Microscopic Reviewed; Nitrate Urine Negative (Negative); Protein Urine 3+ mg/dL (Negative); RBC Urine 0-2 /hpf (0-2); Squamous Epithelial Cell Urine None Seen /hpf (Few); Urobilinogen Urine 0.2 mg/dL (<2.0)
[2024-07-16 14:00] VITALS: BP 156/80; PULSE 88; RESP 16; TEMP 36.6; O2SAT 99
[2024-07-16] MEDS: HYDROcodone/acetaminophen (*CRX) 5-325 MG TABLET 1 TAB PO (14:51)
[2024-07-16] MEDS: CIPROFLOXACIN 500 MG TAB PO (14:51)
[2024-07-16 14:59] VITALS: BP 152/84; PULSE 80; RESP 16; TEMP 36.6; O2SAT 99
--- NOTE | 2024-07-16 18:45 | ED.MALEGU ---
HPI - Male Genitourinary General Chief complaint: Urogenital-Male Stated complaint: painful urination Time Seen by Provider: 07/16/24 11:41 History of Present Illness HPI Narrative: Over last 2 days patient has had dysuria, feels like he is going more often but that seems to be dribbling and feels like he is not voiding completely. A few days ago had noticed some blood clots in his bladder. Related Data Home Medications Medication Instructions Recorded Confirmed aspirin 81 mg tablet,delayed 81 mg PO DAILY 05/19/24 05/19/24 release carvedilol 12.5 mg tablet 12.5 mg PO TID 05/19/24 05/19/24 dapagliflozin propanediol 10 mg 10 mg PO DAILY 05/19/24 05/19/24 tablet (Farxiga) furosemide 20 mg tablet 20 mg PO DAILY 05/19/24 05/19/24 hydralazine 25 mg tablet 25 mg PO TID 05/19/24 05/19/24 potassium chloride 10 mEq 10 meq PO DAILY 05/19/24 05/19/24 tablet,extended release sacubitril 49 mg-valsartan 51 mg 49 tablet PO BID 05/19/24 05/19/24 tablet (Entresto) Allergies Allergy/AdvReac Type Severity Reaction Status Date / Time lisinopril Allergy Cough Verified 06/03/24 13:46 Review of Systems Review of Systems: All systems reviewed & are unremarkable except as noted in HPI and below PMFSH Past Medical History Medical History Benign prostatic hyperplasia Cardiomyopathy Heart failure with reduced ejection fraction EF 25% in 11/2023 improved to 55% in 01/2024. Hyperlipidemia Hypertension Mitral regurgitation Obstructive sleep apnea on CPAP Stopped smoking with less than 1 pack per day history Surgical History Surgical History History of transurethral resection of prostate Family History Family History Other Family history non-contributory Social History Social History Social History: Surrogate medical decision maker: Angelika [place], spouse. Code status: Full code. Smoking status: Former smoker Tobacco type: cigarettes Smoking end date: 09/09/74 Alcohol intake: never Substance use: never Do You Feel Safe in your Home?: Yes Lack of Transportation: No Lack of Food: Never True Current Housing: I Have Housing Concerned About Future Housing: No Difficulty Paying Gas/Electric Bills: YES Difficulty Paying for Meds: YES Currently Unemployed: No Education: Bachelor's Degree Difficulty w/ Childcare or Family Care: No Spiritual care concerns: No Exam Narrative: EXAMINATION OF ORGAN SYSTEMS/BODY AREAS: Constitutional: Vital signs per nursing GENERAL:[No acute distress, non-toxic appearing.] HEAD: Normal with no signs of head trauma. EYES: EOMI, conjunctiva normal ENT: Hearing grossly intact LUNGS: Nonlabored breathing. HEART: [Regular rate and rhythm] ABD: Very slight tenderness suprapubic EXT: Normal range of motion SKIN: [No rashes or lesions.] NEURO: [Alert and oriented x 3. No gross focal sensory or strength deficits.] PSYCH: Normal affect Course Vital Signs Vital signs: Vital Signs Temperature 98.1 F 07/16/24 11:30 Pulse Rate 91 07/16/24 11:30 Respiratory Rate 18 07/16/24 11:30 Blood Pressure 157/69 H 07/16/24 11:30 Pulse Oximetry 97 07/16/24 11:30 Oxygen Delivery Room Air 07/16/24 11:30 Temperature 97.9 F 07/16/24 14:59 Pulse Rate 80 07/16/24 14:59 Respiratory Rate 16 07/16/24 14:59 Blood Pressure 152/84 H 07/16/24 14:59 Pulse Oximetry 99 07/16/24 14:59 Oxygen Delivery Room Air 07/16/24 11:30 MDM - Male Genitourinary MDM Narrative Medical decision making narrative: 74-year-old male presents with dysuria, he is still able to void however only small amounts at a time, urinalysis without much rbc's however there are some WBCs so I will tentatively treat for possible UTI. Bladder scanner and I did also perform a pocus of bladder and did not see any significant amount of volume in the bladder. Given this I suspect more likely UTI or prostatitis; pt already on flomax; will start cipro and have him f/u with uro in the next 2-3 d, return if he can't void at all and will need a catheter. Pt agreeable to this plan Lab Data Labs: Lab Results 07/16/24 Range/Units 12:53 Urine Color Yellow (Yellow) Urine Appearance Cloudy H (Clear) Urine pH 6.0 (5.0-9.0) Ur Specific [place] 1.020 (1.001-1.035) Urine Protein 3+ H (Negative) mg/dL Urine Glucose (UA) 3+ H (Negative) mg/dL Urine Ketones 1+ H (Negative) mg/dL Ur Blood (Man) Negative (Negative) Urine Nitrate Negative (Negative) Urine Bilirubin Negative (Negative) Urine Urobilinogen 0.2 (<2.0) mg/dL Add Ur Microanalysis Reviewed Leukocyte Esterase Rfl Negative (Negative) LENO/UL Urine RBC 0-2 (0-2) /hpf Urine WBC 6-10 H (0-3) /hpf Ur Squamous Epith Cells None seen (Few) /hpf Urine Bacteria None seen /hpf Urine Casts 11-20 Hyaline Casts Present (None) /lpf Discharge Plan Discharge Clinical Impression: Urinary retention, Urinary tract infection Patient Disposition: Home, Self-Care Condition: Stable Instructions: Urinary Tract Infection in Men (ED) Additional Instructions: Please follow up with your urologist; take the medications as prescribed, you can always return for any further issues, especially if you have difficulty urinating, blood in urine, or abdominal pain or anything else concerning. Prescriptions: New ciprofloxacin HCl 500 mg tablet 250 mg PO Q12H Qty: 10 0RF hydrocodone-acetaminophen 5-300 mg tablet 1 tablet PO Q8H PRN (Reason: pain) Qty: 7 0RF No Action carvedilol 12.5 mg tablet 12.5 mg PO TID Patient Comments: Patient stated he takes it 3 times daily hydralazine 25 mg tablet 25 mg PO TID potassium chloride 10 mEq tablet extended release 10 meq PO DAILY aspirin 81 mg tablet,delayed release (DR/EC) 81 mg PO DAILY Hold Instructions: Resume on 05/24/24. furosemide 20 mg tablet 20 mg PO DAILY dapagliflozin propanediol [Farxiga] 10 mg tablet 10 mg PO DAILY Entresto 49-51 mg tablet 49 tablet PO BID cephalexin 500 mg Capsule 500 mg PO QID 3 Days Qty: 12 0RF Follow-up/Referrals: DELORES,DAVID MCFADDEN [Primary Care Provider] -
== END 2024-07-16 15:02 | disposition home or self-care (01) ==
PROVIDERS: Emergency Provider Emergency Medicine; PCP Nurse Practitioner Family
DX: N39.0 Urinary tract infection, site not specified (principal); R33.9 Retention of urine, unspecified; I42.9 Cardiomyopathy, unspecified; I11.0 Hypertensive heart disease with heart failure; I50.9 Heart failure, unspecified; I34.0 Nonrheumatic mitral (valve) insufficiency; E78.5 Hyperlipidemia, unspecified; N40.0 Benign prostatic hyperplasia without lower urinary tract symptoms; G47.33 Obstructive sleep apnea (adult) (pediatric); Z87.891 Personal history of nicotine dependence; Z90.79 Acquired absence of other genital organ(s)
CPT/HCPCS: 51702; 81001; 87086; 99283; A9270

== ENCOUNTER 2025-01-08 08:57 | Outpatient (CLI) | payer MEDICARE, SELFPAY ==
[2025-01-08 10:14] LABS: Alanine Aminotransferase 20 U/L (6-50); Albumin Level 4.2 g/dL (3.5-5.1); Alkaline Phosphatase 74 U/L (38-126); Anion Gap 8 mmol/L (4-12); Aspartate Amino Transferase 24 U/L (17-59); Bilirubin,Total 0.5 mg/dL (0.2-1.3); Blood Urea Nitrogen 22 mg/dL (9-20); Calcium 8.5 mg/dL (8.4-10.2); Carbon Dioxide 29 mmol/L (22-30); Chloride 107 mmol/L (98-107); Cholesterol 230 mg/dL (0-200); Estimated Glomerular Filt Rate > 60; Glucose 98 mg/dL (65-110); HDL Direct 43 mg/dL; Potassium 3.9 mmol/L (3.4-5.0); Sodium 144 mmol/L (137-145); Triglycerides 113 mg/dL (<150)
[2025-01-08 10:25] LABS: LDL Cholesterol Direct 141 mg/dL
--- OUTSIDE RECORDS SUMMARY | 2025-01-09 11:23 | XMS_ITS | Clinical Summary ---
Author Organization [facility] Address [address] [place] [address] Phone Care Team Providers Care Headstart Teacher Name Role Phone Provider, Unknown Primary Care Provider Agustína Lacey Garcia MD Unavailable Allergies No known active allergies Medications finasteride (PROSCAR) 5 MG Tablet Take 5 mg by mouth daily. 04/04/2020 Active tamsulosin (FLOMAX) 0.4 MG Capsule Take 0.4 mg by mouth daily. Active Immunizations Immunization Administration Dates Next Due TDAP Vaccine 05/18/2020 Social History Tobacco Use Types Packs/Day Years Used Date Smoking Tobacco: Former Smokeless Tobacco: Never Sex and Gender Information Value Date Recorded Sex Assigned at Not on file Legal Sex Male 1:07 PM CDT Gender Identity Not on file Sexual Orientation Not on file Last Filed Vital Signs Vital Sign Reading Time Taken Comments Blood Pressure 239/126 05/18/2020 1:54 PM CDT Pulse 95 05/18/2020 1:54 PM CDT Temperature 37.2 C (98.9 F) 05/18/2020 1:54 PM CDT Respiratory Rate 16 05/18/2020 1:54 PM CDT Oxygen Saturation 96% 05/18/2020 1:54 PM CDT Inhaled Oxygen Concentration - - Weight 91.6 kg (202 lb) 05/18/2020 1:54 PM CDT Height 182.9 cm (6') 05/18/2020 1:54 PM CDT Body Mass Index 27.4 05/18/2020 1:54 PM CDT Plan of Treatment Health Maintenance Due Date Last Done Comments Hepatitis C Virus (HCV) Screening 1951 Colonoscopy 1996 Colorectal Cancer Screening 1996 Cologuard 2001 Immunochemical Fecal Occult Blood 2001 Pneumococcal Immunization (5 0+ years) (1 of 1 - PCV) 2001 Zoster Immunization (1 of 2) 2001 Influenza Immunization (#1) 2024 SARS-COV-2 Immunization (2 - season) 2024 08/17/2021 Respiratory Syncytial Virus (RSV) Immunization (Adult) (1 - 1-dose 75+ series) 2026 DTaP/Tdap/Td Immunization Discontinued 05/18/2020 Hepatitis B Immunization Aged Out No longer eligible based on patient's age to complete this topic Meningococcal Immunization (ACWY) Aged Out No longer eligible based on patient's age to complete this topic Rotavirus Immunization Aged Out No lo nger eligible based on patient's age to complete this topic Insurance [facility] Care Teams Headstart Teacher Relationship Specialty Start Date End Date Provider, Unknown UNKNOWN PCP - General 06/30/20 Lacey Serrano MD [address] [place] [address] Nephrology 06/30/20
--- OUTSIDE RECORDS SUMMARY | 2025-01-09 11:23 | XMS_ITS | Encounter Summary ---
Author Organization [facility] Address [address] [place] [address] Phone Care Team Providers Care Leather Splitter Name Role Phone Provider, Unknown Primary Care Provider Lacey Ramirez MD Unavailable Encounter Details Date Type Department Care Team (Late st Contact Info) Description 06/30/2020 Lab Requisition [facility] Services [address] [place] [phone] Andrew Mendez MD [address] [place] [address] Other obstructive and reflux uropathy Social History Tobacco Use Types Packs/Day Years Used Date Smoking Tobacco: Former Smokeless Tobacco: Never Sex and Gender Information Value Date Recorded Sex Assigned at Not on file Legal Sex Male 1:07 PM CDT Gender Identity Not on file Sexual Orientation Not on file documented as of this encounter Plan of Treatment Not on file documented as of this encounter Procedures Procedure Name Priority Date/Time Associated Diagnosis Comments PATHOLOGY SURGICAL Routine 06/29/2020 8: 28 AM CDT Other obstructive and reflux uropathy documented in this encounter Results * PATHOLOGY SURGICAL (06/29/2020 8:28 AM CDT) Case Report Surgical Pathology Report Case: [id number] Authorizing Provider: Andrew Mendez MD Collected: 06/29/2020 08:28 AM Ordering Location: [facility] Received: 06/30/2020 08:30 AM [facility] Services Pathologist: Aurea Courtney MD Specimen: Prostate, PROSTATE TISSUE 07/06/2020 2:44 PM CDT [facility] FINAL DIAGNOSIS PROSTATE, TRANSURETHRAL RESECTION OF PROSTATE: 1) NEGATIVE FOR MALIGNANCY 2) BENIGN PROSTATIC TISSUE WITH GLANDULAR HYPERPLASIA AND STROMAL HYPERTROPHY 07/06/2020 2:44 PM CDT [facility] at 1444 CDT Clinical Information Hypertrophy of prostate with urinary obstruction 07/06/2020 2:44 PM CDT [facility] Gross Description A. PROSTATE TISSUE The specimen is labeled Inocencio Shi, prostate tissue. The name and the CC/MR number on the requisition and the specimen container match. Received in formalin are multiple unoriented rocha pink soft tissue fragments weighing 12.2 grams and measuring 4.5 x 4.5 x 1 cm. No distinct masses or lesions are grossly identified. Random food service sales representatives sections are submitted in blocks A1 through A10. SS/10/TC/danielle 07/06/2020 2:44 PM CDT [facility] Other PROSTATE / Unknown 0 8:28 AM CDT 06/30/2020 8:30 AM CDT Andrew Mendez MD PATHOLOGY/CYTOLOGY ORDERABLES Fi nal Result [facility] [address] [place] [address], documented in this encounter Visit Diagnoses Diagnosis Other obstructive and reflux uropathy documented in this encounter Care Teams Leather Splitter Relationship Specialty Start Date End Date Provider, Unknown UNKNOWN PCP - General 06/30/20 Lacey Serrano MD [address] [place], [place] [phone] Nephrology 06/30/20 documented as of this encounter
--- OUTSIDE RECORDS SUMMARY | 2025-01-09 11:23 | XMS_ITS | Encounter Summary ---
Author Organization [facility] Address [address] [facility] [place] [address] Phone Care Team Providers Care Director Of Patient Safety Name Role Phone Lacey Serrano MD Primary Care Provider [phone] Provider, Unknown Primary Care Provider Unavaila ble Lacey Serrano MD Unavailable Encounter Details Date Type Department Care Team (Late st Contact Info) Description 06/29/2020 [facility] [address] [place] [phone] Andrew Mendez MD [address] [place] [address] Benign prostatic hyperplasia with lower urinary tract symptoms Social History Tobacco Use Types Packs/Day Years Used Date Smoking Tobacco: Never Assessed Sex and Gender Information Value Date Recorded Sex Assigned at Not on file Legal Sex Male 1:07 PM CDT Gender Identity Not on file Sexual Orientation Not on file documented as of this encounter Plan of Treatment Not on file documented as of this encounter Visit Diagnoses Diagnosis Benign prostatic hyperplasia with lower urinary tract symptoms documented in this encounter Care Teams Director Of Patient Safety Relationship Specialty Start Date End Date Lacey Serrano MD [address] [place], [place] [phone] PCP - General Nephrology 05/18/20 06/29/20 Provider, Unknown UNKNOWN PCP - General 06/30/20 Lacey Serrano MD [address] [place] [address] Nephrology 06/30/20 documented as of this encounter
--- OUTSIDE RECORDS SUMMARY | 2025-01-09 11:23 | XMS_ITS | Clinical Summary ---
Author Organization [facility] Address [address] [place] [address] Care Team Providers Care Drafter Directional Survey Name Role Phone Leticia Rodney MACK Primary Care Provider [phone] Allergies Active Allergy Reactions Criticality Noted Date Comments Lisinopril Cough 07/14/2024 Poison Krystal Extract Rash Low 07/14/2024 Medications carvedilol (COREG) 12.5 MG tablet Take 1.5 tablets (18.75 mg total) by mouth 2 (two) times daily. 4 Active FARXIGA 10 MG tablet Take 1 tablet (10 mg total) by mouth daily. 4 Active furosemide (LASIX) 20 MG tablet Take 1 tablet (20 mg total) by mouth daily. 4 Active potassium chloride CR (K-TAB) 10 MEQ Tab CR tablet 4 Active ENTRESTO 24-26 MG tablet Take 1 tablet by mouth 2 (two) times daily. 4 Active tamsulosin (FLOMAX) 0.4 MG Cap Take 1 capsule (0.4 mg total) by mouth daily. Active triamcinolone (KENALOG) 0.1 % ointmentIndicat ions:Dyshidroti c eczema Apply topically 2 (two) times daily. 30 g 2 4 Active Active Problems Problem Noted Date Diagnosed Date Congestive heart failure, un specified HF chronicity, unspecified heart failure type ([facility]/HCC) 07/23/2024 Dyshidrotic eczema 07/23/2024 Benign prostatic hyperplasia with urinary freque ncy 07/23/2024 Primary hypertension 07/14/2024 BPH with obstruction/lower urinary tract symptom s 10/28/2019 Resolved Problems Problem Noted Date Diagnosed Date Resolved Date Coronary artery disease invo lving [place] coronary artery of [place] heart without angina pectoris 07/14/2024 10/16/2024 Encounters Date Type Department Care Team Description 10/16/2024 1:30 PM PROGRAM PARAPROFESSIONAL Office Visit [facility] [address] [address] aJson Gooden MD Coronary Artery Disease (consult); Hypertension 10/16/2024 Travel from Last 3 Months Immunizations Immunization Administration Dates Next Due Tdap (Generic) 05/18/2020 Family History Medical History Relation Comments Cancer Mother ovarian cancer Cancer Sister pancreatic cance r Relation Status Comments Mother Sister Social History Tobacco Use Types Packs/Day Years Used Date Smoking Tobacco: Never Passive Smoke Exposure: Never Smokeless Tobacco: Never Alcohol Use Standard Drinks/Week Comments Not Currently 0 (1 standard drink = 0.6 oz pur e alcohol) PHQ-2 Answer Date Recorded Patient Health Questionnaire-2 Score 0 07/14/2024 Sex and Gender Information Value Date Recorded Sex Assigned at Not on file Legal Sex Male 10:39 AM PROGRAM PARAPROFESSIONAL Gender Identity Not on file Sexual Orientation Not on file Last Filed Vital Signs Vital Sign Reading Time Taken Comments Blood Pressure 126/78 10/16/2024 1:22 PM PROGRAM PARAPROFESSIONAL Pulse 78 10/16/2024 1:22 PM PROGRAM PARAPROFESSIONAL Temperature 36.5 C (97.7 F) 07/14/2024 11:01 AM PROGRAM PARAPROFESSIONAL Respiratory Rate 16 07/14/2024 11:01 AM PROGRAM PARAPROFESSIONAL Oxygen Saturation 98% 10/16/2024 1:22 PM PROGRAM PARAPROFESSIONAL Inhaled Oxygen Concentration - - Weight 86 kg (189 lb 9.6 oz) 10/16/2024 1:22 PM PROGRAM PARAPROFESSIONAL Height 185.4 cm (6' 1 ) 10/16/2024 1:22 PM PROGRAM PARAPROFESSIONAL Body Mass Index 25.01 10/16/2024 1:22 PM PROGRAM PARAPROFESSIONAL Plan of Treatment Upcoming Encounters Date Type Department Care Team (Late st Contact Info) Description 02/12/2025 2:00 PM CDT Office Visit [facility] [address] [address] Jason Gooden MD 3 [facility] [address] [place] [phone] Health Maintenance Due Date Last Done Comments ASCVD LDL 1950 ASCVD Statin 1950 Hepatitis C 1969 Annual Medicare Wellness Visit 2016 PHQ-2 (Physician Overton) 09/09/2024 07/14/2024 COVID-19 Vaccine (2 - 2023-2 5 season) 2025 08/17/2021 Postponed from 05/10 (Patient Refused) Colorectal Cancer Screening Colonoscopy (10 Years) 07/14/2025 Postponed from (Patient Refused) Pneumococcal Vaccine: 50+ Ye ars (1 of 2 - PCV) 07/14/2025 Postponed from 04/06 (Patient Refused) RSV Immunization or 60+ Years (1 - Risk 60-74 years 1-dose series) 07/14/2025 Postponed from 04/06 (Patient Refused) Zoster Vaccines (1 of 2) 07/14/2025 Pos tponed from 2001 (Patient Refused) DTaP, Tdap and Td Vaccines ( 2 - Td or Tdap) 05/18/2030 05/18/2020 Meningococcal B Vaccine Aged Out No l onger eligible based on patient's age to complete this topic Meningococcal Vaccine Aged Out No zelda zen eligible based on patient's age to complete this topic RSV Immunizations Under 20 Months Aged Out No longer eligible based on patient's age to complete this topic Procedures Procedure Name Priority Date/Time Associated Diagnosis Comments ELECTROCARDIOGRAM (NON MIDMARK ACQUIRED) Routine 10/16/2024 1:34 PM PROGRAM PARAPROFESSIONAL Congestive heart failure, unspecified HF chronicity, unspecified heart failure type ([facility]) from Last 3 Months Results * ELECTROCARDIOGRAM (10/16/2024 1:34 PM PROGRAM PARAPROFESSIONAL) 10/16/2024 1:34 PM PROGRAM PARAPROFESSIONAL [facility] CARDIOVASCULAR - 10/18/2024 1:31 PM PROGRAM PARAPROFESSIONAL [address] [address] Test Date: 2024-10-16 Pat Name: ELEANOR MCGINNIS Department: 177 Room: Gender: Male [employer]raiser [employer]: ag : 1950 Requested By: JASON GOODEN Order Number: [id number] Reading MD: Jason Gooden Measurements Intervals [place] Rate: 71 P: 72 VT: 168 QRS: 58 QRSD: 108 T: 70 QT: 401 QTc: 437 Interpretive Statements SINUS RHYTHM NONSPECIFIC T-WAVE ABNORMALITY RAM PARAPROFESSIONAL Procedure Note Jason Gooden MD - 10/18/[address] [address] Test Date: 2024-10-16 Pat Name: ELEANOR MCGINNIS Department: 177 Room: Gender: Male [employer]: : 1950 Requested By: JASON GOODEN Order Number: [id number] Reading MD: Jason Gooden Measurements Intervals [place] Rate: 71 P: 72 VT: 168 QRS: 58 QRSD: 108 T: 70 QT: 401 QTc: 437 Interpretive Statements SINUS RHYTHM NONSPECIFIC T-WAVE ABNORMALITY RAM PARAPROFESSIONAL Jason Gooden MD PROCEDURES-ORDERABLE NO CHARG E Final Result [place] from Last 3 Months Insurance MEDICARE Care Teams Drafter Directional Survey Relationship Specialty Start Date End Date Kilzer, Leticia, LEAD SUPPLY WORKER [address] [place] [id number] PCP - General Nurse Practitioner Family 07/14/24
== END 2025-01-08 08:58 | disposition home or self-care (01) ==
PROVIDERS: PCP Nurse Practitioner Family; Visit Provider Internal Medicine Cardiovascular Disease
DX: E78.00 Pure hypercholesterolemia, unspecified (principal)
CPT/HCPCS: 36415; 80053; 80061

== ENCOUNTER 2025-07-20 08:12 | Outpatient (CLI) | payer MEDICARE, SELFPAY ==
--- OUTSIDE RECORDS SUMMARY | 2025-07-19 08:06 | XMS_ITS | Continuity of Care Document ---
Author Organization [facility] Address [address] [place] [address] Phone Care Team Providers Care Cigar Packer And Picker Name Role Phone Yg GUTIERREZ, FACC, Jason BENSON Unavailable U navailable Allergies, Adverse Reactions, Alerts Substance Reaction Status Criticality lisinopril Cough(moderate) Active No Informati on Medications Medication Instructions Dosage Effective Dates (start - stop) Status Comments Entresto 49 mg-51 mg tablet take 1 tablet by oral route 2 times every day 1.00 tablet - Active carvedilol 12.5 mg tablet take 1 and 1/2 pill twice a day - Active FUROSEMIDE 20MG TABLETS TAKE 1 TABLET BY MOUTH DAILY - Active hydralazine 25 mg tablet TAKE 1 TABLET B Y MOUTH THREE TIMES DAILY - Active ASPIRIN 81MG EC LOW DOSETABLETS TAKE 1 TABLET BY MOUTH DAILY - Active Farxiga 10 mg tablet Take 1 tablet by mouth once daily - Active ezetimibe 10 mg tablet - Act bernard potassium chloride ER 10 mEq tablet,extended release - Active tamsulosin 0.4 mg capsule - Active hydrocodone 5 mg-acetaminophen 300 mg tablet TAKE 1 TABLET BY MOUTH EVERY 8 HOURS NEEDED FOR PAIN - Active polymyxin B sulfate 10,000 unit-trimethoprim 1 mg/mL eye drops INSTILL 1 DROP IN RIGHT EYE EVERY 4 HOURS FOR 10 DAYS - Active triamcinolone acetonide 0.1 % topical ointment APPLY TOPICALLY TO THE AFFECTED AREA TWICE DAILY - Active methylprednisolone 4 mg tablets in a dose pack FOLLOW PACKAGE DIRECTIONS - Active Procedures Procedure Date Complex e/m visit add on OFFICE/OUTPATIENT VISIT, EST ELECTROCARDIOGRAM, COMPLETE Advance Directives Directive Yes / No Effective Date File Name No Information Encounters Encounter Description Practice Location Reason(s) For Visit Diagnoses Date Provider Providers Copied on Encounter [facility], [address] [place] [address], [id number] , [facility]: [phone] [facility] Yg Gomez. [address] [place], [place], [id number] , . tel: [phone] OFFICE/OUTPA TIENT VISIT, EST [facility], [address] [place] [address], [id number] , tel: [phone] [facility] [place] Follow Up of 3 mos (chief complaint) CardiomyopathyHTNH yperlipidemia 5 Saheta Santony. [facility] [address] [place], [place], [id number] , [place]. tel: [phone] Referring Provider: Mitch Hurst, [facility] [address] , [place], [address]. tel:[phone] [facility], [address] [place] [address], [id number] , tel: [phone] [facility] [place] No Information 5 Saheta Sanjaya. [address] [place], [place], [id number] , [place]. tel: [phone] [facility], [address] [place] [address], [id number] , tel: [phone] [facility] DesPeres No Information 5 Saheta Sanjaya. [facility] [place], [id number] , [place]. tel: [phone] [facility], [address] [place] [address], [id number] , tel: [phone] [facility] DesPhortencia No Information 5 [facility] [address] [place], [place], [id number] , . tel: [phone] [facility], [address] [place] [address], [id number] , tel: [phone] [facility] No Information 5 [facility]. [address] [place], [place], [id number] , [place]. tel: [phone] [facility], [address] [place] [address], [id number] , tel: [phone] [facility] No Information 5 [facility]. [address] [place], [place], [id number] , [place]. tel: [phone] [facility], [address] [place] [address], [id number] , tel: [phone] [facility] [place] HypokalemiaSleep apnea, unspecifiedEncount er for preprocedural laboratory examinationNonrheu matic mitral (valve) insufficiencyCardi omyopathy, unspecifiedHyperli pidemia, unspecifiedUnspeci fied systolic (congestive) heart failureEssential (primary) hypertensionShortn ess of breathEncounter for screening for cardiovascular disorders 5 [facility]. [address] [place], [place], [id number] , [place]. tel: [phone] Referring Provider: Amelie Paez [address], [place], [address]. tel:[phone] Family History Family Member Type Diagnosis Age At Onset No Information Payers Payer name Insurance type Covered republican ID Authoriza tibenton(s) [place] CI [id number] SocialMadeSimple CI [id number] Social History Type Description Quantity Date Captured Comments Sex Male Smoking Status No Information Chief Complaint And Reason For Visit No Information Reason For Referral Reason For Referral No Information Plan Of Treatment Date Type Action Status Appointment Inocencio Vargas Appointment Inocencio Vargas GCO Needs Rs BOOKED Appointment Inocencio [place] BOOKED History Of Present Illness Encounter Date Complaint History Of Prese nt Illness Follow Up of 3 mos Functional Status Date Functional Assessmen t No Information Instructions Date Instruction Additional Infor mation No Information Assessments Type Assessment Date No Information Patient Care Teams Name Effective Dates (start - stop) Status Members No Information
--- OUTSIDE RECORDS SUMMARY | 2025-07-20 08:21 | XMS_ITS | Clinical Summary ---
Author Organization [facility] Address [address] [place] [address] Phone Care Team Providers Care Hooker Machine Tender Name Role Phone Provider, Unknown Primary Care [...] Comments Hepatitis C Virus (HCV) Screening 1950 Cologuard 1996 Colonoscopy 1996 Colorectal Cancer Screening 1996 Immunochemical Fecal Occult Blood 1996 Pneumococcal Immunization (5 0+ years) (1 of 1 - PCV) 2001 Zoster Immunization (1 of 2) 2001 Influenza Immunization (#1) 2025 SARS-COV-2 Immunization (2 - season) 2025 08/17/2021 Respiratory Syncytial Virus (RSV) Immunization (Adult) (1 - 1-dose 75+ series) 2026 DTaP/Tdap/Td Immunization Discontinued 05/18/2020 Hepatitis B Immunization Aged Out No longer eligible based on patient's age to complete this topic Human Papillomavirus (HPV) Immunization Aged Out No longer eligible b ased on patient's age to complete this topic Meningococcal Immunization (ACWY) Aged Out No longer eligible based on patient's age to complete this topic Rotavirus Immunization Aged Out No lo nger eligible based on patient's age to complete this topic Insurance Care Teams Hooker Machine Tender Relationship Specialty Start Date End Date Provider, Unknown UNKNOWN PCP - General 06/30/20 Lacey Serrano MD [address] [place] [address] Nephrology 06/30/20
--- OUTSIDE RECORDS SUMMARY | 2025-07-20 08:21 | XMS_ITS | Encounter Summary ---
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 PRESS OPERATOR Gender Identity Not on file Sexual Orientation Not on file documented as of this encounter Plan of Treatment Upcoming Encounters Date Type Department Care Team (Late Contact Info) Description 09/10/2025 1:00 PM PLASTIC PRESS OPERATOR Office Visit [facility] [address] Jason Lares MD 3 [facility] [address] [place] [address] documented as of this encounter Procedures Procedure Name Priority Date/Time Associated Diagnosis Comments CMP (ABSTRACTED LAB) Routine 01/08/2025 LIPID PANEL Routine 01/08/2025 documented in this encounter Results * CMP (ABSTRACTED LAB) (01/08/2025) SODIUM S/P/B 144 POTASSIUM S/P/B 3.9 CHLORIDE S/P/B 107 CO2 29 BUN 22 CREATININE S/P/B 0.89 0.7 - 1.3 EGFR NON-AFR. AMER. >60 <=90 CALCIUM S/P/B 8.5 GLUCOSE 98 mg/dL TOTAL PROTEIN S/P/B 7.0 ALBUMIN S/P/B 4.2 3.5 - 5.0 AST 24 ALT 20 ALKALINE PHOSPHATASE S/P/B 74 BILIRUBIN TOTAL S/P/B 0.5 01/08/2025 us Default History Genericprovider LAB-OUTSIDE/ABST RACTED Final Result * LIPID PANEL (01/08/2025) CHOLESTEROL 230 HDL 43 TRIGLYCERIDES 113 DIRECT LDL 141 01/08/2025 us Default History Genericprovider LABORATORY Final Result documented in this encounter Visit Diagnoses Not on filedocumented in this encounter Care Teams Message Clerk Relationship Specialty Start Date End Date Leticia Rodney FNP [address] [place] [id number] PCP - General Nurse Practitioner Family 07/14/24 documented as of this encounter
--- OUTSIDE RECORDS SUMMARY | 2025-07-20 08:21 | XMS_ITS | Clinical Summary ---
Author Organization [facility] Address [address] [place] [address] Care Team Providers Care Pigment Processor Name Role Phone Leticia Rodney MACK Primary Care Provider [phone] Allergies Active Allergy Reactions Criticality Noted Date Comments Lisinopril Cough 07/14/2024 Poison Krystal Extract Rash Low 07/14/2024 Medications carvedilol (COREG) 12.5 MG tablet Take 1.5 tablets (18.75 mg total) by mouth 2 (two) times daily. 04/30/2024 Active FARXIGA 10 MG tablet Take 1 tablet (10 mg total) by mouth daily. 12/18/2023 Active furosemide (LASIX) 20 MG tablet Take 1 tablet (20 mg total) by mouth daily. 04/24/2024 Active potassium chloride CR (K-TAB) 10 MEQ Tab CR tablet 07/11/2024 Activ e ENTRESTO 24-26 MG tablet Take 1 tablet by mouth 2 (two) times daily. 11/28/2023 Active tamsulosin (FLOMAX) 0.4 MG Cap Take 1 capsule (0.4 mg total) by mouth daily. Active ezetimibe (ZETIA) 10 MG tablet TAKE 1 TABLET(10 MG) BY MOUTH DAILY 30 tablet 3 04/15/2025 Active Active Problems Problem Noted Date Diagnosed Date Hypercholesterolemia 02/06/2025 Congestive heart failure, un specified HF chronicity, unspecified heart failure type 07/23/2024 Dyshidrotic eczema 07/23/2024 Benign prostatic hyperplasia with urinary freque ncy 07/23/2024 Primary hypertension 07/14/2024 BPH with obstruction/lower urinary tract symptom s 10/28/2019 Resolved Problems Problem Noted Date Diagnosed Date Resolved Date Coronary artery disease invo lving [place] coronary artery of [place] heart without angina pectoris 07/14/2024 10/16/2024 Immunizations Immunization Administration Dates Next Due Tdap (Generic) 05/18/2020 Family History Medical History Relation Comments Cancer Mother ovarian cancer Cancer Sister pancreatic cance r Relation Status Comments Mother Sister Social History Tobacco Use Types Packs/Day Years Used Date Smoking Tobacco: Never Passive Smoke Exposure: Never Smokeless Tobacco: Never Alcohol Use Standard Drinks/Week Comments Never 0 (1 standard drink = 0.6 oz pur e alcohol) PHQ-2 Answer Date Recorded Patient Health Questionnaire-2 Score 0 07/14/2024 Sex and Gender Information Value Date Recorded Sex Assigned at Not on file Legal Sex Male 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 HOUSEKEEPER Gender Identity Not on file Sexual Orientation Not on file Last Filed Vital Signs Vital Sign Reading Time Taken Comments Blood Pressure 128/78 02/12/2025 2:21 PM CDT Pulse 60 02/12/2025 2:21 PM CDT Temperature 36.5 C (97.7 F) 07/14/2024 11:01 AM CAMP HOUSEKEEPER Respiratory Rate 16 07/14/2024 11:01 AM CAMP HOUSEKEEPER Oxygen Saturation 95% 02/12/2025 2:21 PM CDT Inhaled Oxygen Concentration - - Weight 87 kg (191 lb 14.4 oz) 02/12/2025 2:21 PM CDT Height 185.4 cm (6' 1) 02/12/2025 2:21 PM CDT Body Mass Index 25.32 02/12/2025 2:21 PM CDT Plan of Treatment Upcoming Encounters Date Type Department Care Team (Late st Contact Info) Description 09/10/2025 1:00 PM CAMP HOUSEKEEPER Office Visit [facility] [address] Jason Lares MD 3 [facility] [address] [place] [address] Health Maintenance Due Date Last Done Comments ASCVD Statin 1950 Colorectal Cancer Screening Colonoscopy (10 Years) 1950 Hepatitis C 1969 Pneumococcal Vaccine: 50+ Ye ars (1 of 2 - PCV) 1970 Zoster Vaccines (1 of 2) 2001 RSV Immunization or 60+ Years (1 - Risk 60-74 years 1-dose series) 2011 Annual Medicare Wellness Visit 2016 PHQ-2 (Physician Kaw) 09/09/2024 07/14/2024 COVID-19 Vaccine (2 - 2024- 6 season) 2025 08/17/2021 Influenza Adult (#1) 2025 DTaP, Tdap and Td Vaccines ( 2 - Td or Tdap) 05/18/2030 05/18/2020 Hepatitis A Vaccines Aged Out No long er eligible based on patient's age to complete this topic Meningococcal B Vaccine Aged Out No l onger eligible based on patient's age to complete this topic Meningococcal Vaccine Aged Out No zelda zen eligible based on patient's age to complete this topic RSV Immunizations Under 20 Months Aged Out No longer eligible based on patient's age to complete this topic Insurance MEDICARE GENERIC - COMMERCIAL Care Teams Pigment Processor Relationship Specialty Start Date End Date Leticia Rodney FNP [address] [place] [id number] PCP - General Nurse Practitioner Family 07/14/24
[2025-07-20 08:56] LABS: Alanine Aminotransferase 29 U/L (6-50); Albumin Level 4.3 g/dL (3.5-5.1); Alkaline Phosphatase 79 U/L (38-126); Anion Gap 7 mmol/L (4-12); Aspartate Amino Transferase 34 U/L (17-59); Bilirubin,Total 0.6 mg/dL (0.2-1.3); Blood Urea Nitrogen 24 mg/dL (9-20); Calcium 8.5 mg/dL (8.4-10.2); Carbon Dioxide 30 mmol/L (22-30); Chloride 104 mmol/L (98-107); Cholesterol 194 mg/dL (0-200); Estimated Glomerular Filt Rate > 60; Glucose 102 mg/dL (65-110); HDL Direct 42 mg/dL; Potassium 3.7 mmol/L (3.4-5.0); Sodium 141 mmol/L (137-145); Total Protein 7.7 g/dL (6.3-8.2); Triglycerides 128 mg/dL (<150)
== END 2025-07-20 08:13 | disposition home or self-care (01) ==
PROVIDERS: PCP Nurse Practitioner Family; Visit Provider Internal Medicine Cardiovascular Disease
DX: E78.00 Pure hypercholesterolemia, unspecified (principal)
CPT/HCPCS: 36415; 80053; 80061